=== PATIENT | male | born 1980 | race Caucasian/White ===

== ENCOUNTER 2016-06-23 10:15 | Emergency (ER) | payer MEDICAID | END 2016-06-23 11:32 | disposition home or self-care (01) | LOC: D.ER 10:15 | DX: T43.595A Adverse effect of other antipsychotics and neuroleptics, initial encounter (principal); Y92.159 Unspecified place in reform school as the place of occurrence of the external cause; F41.9 Anxiety disorder, unspecified; G47.30 Sleep apnea, unspecified ==